=== PATIENT | female | born 1955 | race Asian ===

== ENCOUNTER 2017-11-03 09:16 | Outpatient (CLI) | payer OTHER ==
--- NOTE | 2017-11-03 10:35 | Mammography Report ---
Screening tomomammogram and 2-D mammogram: On the 2-D images the patient has 2 small discrete nodular densities laterally in the left breast and small nodule immediately noted. On one of these can be clearly seen in the lateral projection. In the right breast there is suspicion of nodularity in the lateral breast not seen in the lateral projection. The overall breast pattern is that of intermediate density and are generally symmetric and unremarkable pattern. A few benign calcifications are noted in the right breast. The tomomammograms demonstrates that the breasts contain multiple small nodules bilaterally all of which have benign characteristics. No suspicious findings. CAD used. Impression: Benign-appearing nodular pattern. Recommendation: Annual mammogram followup. This patient's prior exams however are being requested for comparison and a followup report will be issued if made available. BI-RADS CATEGORY: 2 = Benign ACR BI-RADS MAMMOGRAPHIC CODES: 0 = Needs additional imaging evaluation; 1 = Negative; 2 = Benign; 3 = Probably benign; 4 = Suspicious; 5 = Malignant; 6 = Known biopsy-proven malignancy COMMENT: 1. Dense breast tissue, i.e., adenosis, fibrocystic changes, etc., may obscure an underlying neoplasm. 2. Approximately 10% of cancers are not detected with mammography. 3. A negative mammography report should not delay biopsy if a clinically suspicious mass is present.
--- NOTE | 2017-11-03 10:38 | Mammography Report ---
BONE DENSITY STUDY: Postmenopausal screening. DEFINITIONS: BMD = Bone Mineral Density T-score = BMD related to mean peak bone mass of young adult (mean expressed in Standard Deviation) Z-score = Age matched BMD expressed in SD World Health Organization (WHO) Diagnostic Criteria Normal T-score > -1 SD Osteopenia T-score between -1 and -2.4 SD Osteoporosis T-score -2.5 SD or below FINDINGS: The weighted average BMD of lumbar spine L1-L4 is 0.885 with a T-score of -1.5. The weighted average BMD of the left hip is 0.898 with a T-score of -0.4. The femoral neck BMD is 0.736 with a T. value score of -1.0. IMPRESSION: The patient's average T-score is diagnostic for osteopenia and average relative risk for fracture. NOTE: BMD is not the only risk factor for fracture; also consider factors such as the patient's age, risk of falling, previous osteoporotic fracture, family history of osteoporotic fractures, current smoker, and low body weight. Vincent's triangle is a region of interest in femur, predominantly of trabecular bone. It is not a true anatomic site, and [facility] does not recommend its use clinically.
== END 2017-11-03 09:17 | disposition home or self-care (01) ==
LOC: MAMMO 09:16
PROVIDERS: ATTEND Physician Assistant
DX: Z12.31 Encounter for screening mammogram for malignant neoplasm of breast (principal); M85.88 Other specified disorders of bone density and structure, other site; Z78.0 Asymptomatic menopausal state
CPT/HCPCS: 77063; 77067; 77080